=== PATIENT | male | born 1990 | race Caucasian/White ===

== ENCOUNTER 2017-12-07 19:58 | Emergency (ER) | payer OTHER, SELFPAY ==
[2017-12-07] MEDS ORDERED: LIDOCAINE 1% W/EPI 1:100,000 MDV 50 ML VIAL ONE (20:52)
--- NOTE | 2017-12-07 21:22 | RAD REPORT ---
EXAM DESCRIPTION: RAD - Ankle Left 3 View - 12/07/2017 9:14 pm CLINICAL HISTORY: Animal bite COMPARISON: None. FINDINGS: Focal soft tissue defect in the medial aspect of the distal norman. No fracture or foreign b beatriz seen. Small plantar calcaneal spur noted.
--- NOTE | 2017-12-07 21:55 | ER ---
Nurse's Notes [facility] Name: Samy Lane Age: 27 yrs Sex: Male : 1990 Arrival Date: 12/07/2017 Time: 19:58 Bed 5 Private MD: Diagnosis: Laceration without foreign body of lower leg Presentation: 12/07 20:12 Presenting complaint: Patient states: [place] and a coyote la1 ran up and tried to get my dog so I picked it up it bit my left leg, moderate sized laceration noted to LLE. Bleeding controlled. CMS intact. Transition of care: patient was not received from another setting of care. Onset of symptoms was December 07, 2017. Care prior to arrival: None. 20:12 Method Of Arrival: Wheelchair la1 20:12 Acuity: EDI 3 la1 Triage Assessment: 21:30 Bite description: bite sustained to medial aspect of left calf by a coyote animal bp information: vaccination(s) is not up to date. 21:30 General: Appears in no apparent distress. comfortable, Behavior is calm, cooperative, bp appropriate for age. Historical: - Allergies: 20:12 No Known Allergies; la1 - PMHx: 20:12 None; la1 - Immunization history:: Adult Immunizations up to date. - Social history:: Smoking status: Patient uses tobacco products, smokes one pack cigarettes per day. Screenin:40 Abuse screen: Denies threats or abuse. Denies injuries from another. Nutritional bp screening: No deficits noted. Tuberculosis screening: No symptoms or risk factors identified. Fall Risk None identified. Assessment: 20:30 General: Appears in no apparent distress. comfortable, Behavior is calm, cooperative, bp appropriate for age. Pain: Complains of pain in medial aspect of left calf. Neuro: Level of Consciousness is awake, alert, obeys commands, Oriented to person, place, time, situation, Appropriate for age. Cardiovascular: No deficits noted. Respiratory: Airway is patent Respiratory effort is even, unlabored, Respiratory pattern is regular, symmetrical. GI: No deficits noted. : No signs and/or symptoms were reported regarding the genitourinary system. EENT: No deficits noted. Derm: Skin is intact, is healthy with good turgor, Skin is pink, warm \T\ dry. Wound noted medial aspect of left calf Wound is IRREGULAR LAC 2/2 COYOTE BITE. Musculoskeletal: Circulation, motion, and sensation intact. Range of motion: intact in all extremities. 21:30 Reassessment: LAC REPAIR IN PROCESS, PT TOLERATING WELL. bp 22:13 Reassessment: PT D/C HOME AMBULATORY, DX WITH LACERATION. bp Vital Signs: 20:13 BP 109 / 79; Pulse 117; Resp 16; Temp 97.5; Pulse Ox 100% on R/A; Weight 74.84 kg; la1 Height 6 ft. 0 in. (182.88 cm); 21:29 BP 93 / 66; Pulse 87; Resp 15; Pulse Ox 95% ; bp 22:00 BP 95 / 59; Pulse 82; Resp 16; Pulse Ox 94% ; bp 20:13 Body Mass Index 22.38 (74.84 kg, 182.88 cm) la1 ED Course: 19:58 Patient arrived in ED. do 20:12 Triage completed. la1 20:13 Arm band placed on left wrist. la1 20:31 PD notified about the dog bite. rg2 20:33 Brad Benitez PA is PHCP. jr8 20:33 Marcelle Vega MD is Attending Physician. jr8 20:38 Tapan Reyes, PAUL is Primary Nurse. bp 20:40 Patient has correct armband on for positive identification. bp 21:13 X-ray completed. Portable x-ray completed in exam room. Patient tolerated procedure mh1 well. 21:14 XRAY Ankle LEFT 3 view In Process Unspecified. EDMS 21:24 Assist provider with laceration repair on medial aspect of left calf that was between bp 2.6 to 7.5 cm using sutures. Set up tray. Performed by Brad RUTLEDGE Dressed with [employer], Patient tolerated well. 22:16 Patient did not have IV access during this emergency room visit. bp Administered Medications: 21:01 Drug: Lidocaine (1 %) 1 vials {Note: ADMIN BY PROVIDER.} Volume: 20 ml; Route: bp Infiltration; Outcome: 21:55 Discharge ordered by . jr8 22:15 Discharged to home ambulatory. bp 22:15 Condition: stable 22:15 Discharge instructions given to patient, Instructed on discharge instructions, follow up and referral plans. medication usage, wound care, Demonstrated understanding of instructions, follow-up care, medications, wound care, Prescriptions given X 1. 22:16 Patient left the ED. bp Signatures: Dispatcher [employer] EDMS Ankur Gibson2 Soha Weathers 1 Brad Benitez PA PA jr8 Prince Barnett, RN RN la1 Sheryl Conner Brian, RN RN bp
--- NOTE | 2017-12-07 21:55 | EDPHYS ---
Physician Documentation [facility] Name: Samy Lane Age: 27 yrs Sex: Male : 1990 Arrival Date: 12/07/2017 Time: 19:58 Bed 5 Private MD: ED Physician Marcelle Vega HPI: 12/07 21:10 This 27 yrs old Male presents to ER via Wheelchair with complaints of Dog jr8 Bite. 21:10 The patient was bitten on the left leg, by an unknown animal, in an unprovoked manner, jr8 outdoors. Onset: The symptoms/episode began/occurred acutely, today. Animal information: The appearance of the animal is unknown is unknown, The animal is unknown and not captured. Animal control has been notified. Secondary to the bite the patient reports a laceration, that is deep, 7 cm(s). Associated signs and symptoms: The patient has no apparent associated signs or symptoms. Severity of symptoms: At their worst the symptoms were moderate, in the emergency department the symptoms are unchanged. The patient has not experienced similar symptoms in the past. The patient has not recently seen a physician. Patient stated that he was outside walking with his dog and daughter when a suspected [place] came out from [place] and rushed his daughter and dog. Patient had kicked the animal and then was bit once in left lower leg before animal fled the scene. Stated that he did not know if it was a dog or coyote but thought it may be a coyote . Historical: - Allergies: 20:12 No Known Allergies; la1 - PMHx: 20:12 None; la1 - Immunization history:: Adult Immunizations up to date. - Social history:: Smoking status: Patient uses tobacco products, smokes one pack cigarettes per day. ROS: 21:10 Eyes: Negative for injury, pain, redness, and discharge, ENT: Negative for injury, jr8 pain, and discharge, Neck: Negative for injury, pain, and swelling, Cardiovascular: Negative for chest pain, palpitations, and edema, Respiratory: Negative for shortness of breath, cough, wheezing, and pleuritic chest pain, Abdomen/GI: Negative for abdominal pain, nausea, vomiting, diarrhea, and constipation, Back: Negative for injury and pain, MS/Extremity: Negative for injury and deformity, Neuro: Negative for headache, weakness, numbness, tingling, and seizure. 21:10 Skin: Positive for laceration(s), of the left leg. Exam: 21:10 Head/Face: Normocephalic, atraumatic. Eyes: Pupils equal round and reactive to light, jr8 extra-ocular motions intact. Lids and lashes normal. Conjunctiva and sclera are non-icteric and not injected. Cornea within normal limits. Periorbital areas with no swelling, redness, or edema. ENT: Nares patent. No nasal discharge, no septal abnormalities noted. Tympanic membranes are normal and external auditory canals are clear. Oropharynx with no redness, swelling, or masses, exudates, or evidence of obstruction, uvula midline. Mucous membranes moist. Neck: Trachea midline, no thyromegaly or masses palpated, and no cervical lymphadenopathy. Supple, full range of motion without nuchal rigidity, or vertebral point tenderness. No Meningismus. Cardiovascular: Regular rate and rhythm with a normal S1 and S2. No gallops, murmurs, or rubs. Normal PMI, no JVD. No pulse deficits. Respiratory: Lungs have equal breath sounds bilaterally, clear to auscultation and percussion. No rales, rhonchi or wheezes noted. No increased work of breathing, no retractions or nasal flaring. Abdomen/GI: Soft, non-tender, with normal bowel sounds. No distension or tympany. No guarding or rebound. No evidence of tenderness throughout. Back: No spinal tenderness. No costovertebral tenderness. Full range of motion. MS/ Extremity: Pulses equal, no cyanosis. Neurovascular intact. Full, normal range of motion. Neuro: Awake and alert, GCS 15, oriented to person, place, time, and situation. Cranial nerves II-XII grossly intact. Motor strength 5/5 in all extremities. Sensory grossly intact. Cerebellar exam normal. Normal gait. 21:10 Skin: injury, laceration(s), the wound is approximately 7 cm(s), with a depth of 1 cm(s), of the medial aspect of left calf, that can be described as no foreign body, linear, with mild bleeding. Vital Signs: 20:13 BP 109 / 79; Pulse 117; Resp 16; Temp 97.5; Pulse Ox 100% on R/A; Weight 74.84 kg; la1 Height 6 ft. 0 in. (182.88 cm); 21:29 BP 93 / 66; Pulse 87; Resp 15; Pulse Ox 95% ; bp 22:00 BP 95 / 59; Pulse 82; Resp 16; Pulse Ox 94% ; bp 20:13 Body Mass Index 22.38 (74.84 kg, 182.88 cm) la1 Laceration: 21:53 Wound Repair of 7cm ( 2.8in ) subcutaneous laceration to medial aspect of left calf. jr8 Irregularly shaped.. Minimal bleeding noted.. Distal neuro/vascular/tendon intact. Anesthesia: Local anesthetic administered with 10 mls of 1% lidocaine. Wound prep: Extensive cleansing with betadine, Wound irrigation with saline, Wound explored extensively, Copious irrigation. Skin closed with 12 4-0 Prolene using interrupted sutures and sterile technique. Patient tolerated well. MDM: 20:33 Patient medically screened. jr8 21:53 Data reviewed: vital signs, nurses notes, radiologic studies, plain films, and as a jr8 result, I will discharge patient. Data interpreted: Pulse oximetry: on room air is 95 %. Interpretation: normal. Counseling: I had a detailed discussion with the patient and/or guardian regarding: the historical points, exam findings, and any diagnostic results supporting the discharge/admit diagnosis, the need for outpatient follow up, a family practitioner, to return to the emergency department if symptoms worsen or persist or if there are any questions or concerns that arise at home. 12/07 20:47 Order name: XRAY Ankle LEFT 3 view; Complete Time: 21:28 8 12/07 20:48 Order name: Prolene, Sutures; Complete Time: 21:01 jr8 12/07 20:48 Order name: Dressing - Wound; Complete Time: 21:01 jr8 12/07 20:48 Order name: Gloves, Sterile; Complete Time: 21:01 8 12/07 20:48 Order name: Setup Suture Tray; Complete Time: 21: jr8 Administered Medications: 21:01 Drug: Lidocaine (1 %) 1 vials {Note: ADMIN BY PROVIDER.} Volume: 20 ml; Route: bp Infiltration; Disposition: 12/08 05:43 Co-signature as Attending Physician, Marcelle Vega MD. ma2 Disposition: 12/07/17 21:55 Discharged to Home. Impression: Laceration without foreign body of lower leg. - Condition is Stable. - Discharge Instructions: Laceration Care, Adult. - Prescriptions for Augmentin 875- 125 mg Oral Tablet - take 1 tablet by ORAL route every 12 hours for 10 days; 20 tablet. - Medication Reconciliation Form, Thank You Letter, Antibiotic Education, Prescription Opioid Use form. - Follow up: Private Physician; When: 10 - 14 days; Reason: Wound Recheck, Recheck today's complaints, Continuance of care, Staple/Suture removal, Re-evaluation by your physician. - Problem is new. - Symptoms have improved. Signatures: Dispatcher [employer] EDMS Brad Benitez PA PA jr8 Prince Barnett RN RN la1 Tapan Reyes RN RN bp Marcelle Vega MD MD ma2
== END 2017-12-07 22:16 | disposition home or self-care (01) ==
LOC: ER 19:58
DX: S81.812A Laceration without foreign body, left lower leg, initial encounter (principal); W54.0XXA Bitten by dog, initial encounter; Y93.9 Activity, unspecified; Y92.9 Unspecified place or not applicable
CPT/HCPCS: 99284